=== PATIENT | female | born 1980 | race Caucasian/White ===

== ENCOUNTER 2017-02-13 15:12 | Outpatient (CLI) | payer OTHER ==
--- NOTE | 2017-02-13 16:09 | RAD ---
RIGHT KNEE RADIOGRAPHS TWO VIEWS: 02/13/2017 PROVIDED CLINICAL HISTORY: Right knee pain. FINDINGS: There is no evidence for fracture or other acute osseous abnormality. Alignment appears anatomic. J oint spaces appear preserved. No erosive changes are seen. No evidence for knee joint capsular dist ention. IMPRESSION: Normal two views of the right knee. POS: [facility]
--- NOTE | 2017-02-13 16:10 | RAD ---
LEFT KNEE RADIOGRAPHS TWO VIEWS: 02/13/2017 PROVIDED CLINICAL HISTORY: Left knee pain. FINDINGS: There is no evidence for fracture or other acute osseous abnormality. Alignment appears anatomic. J oint spaces appear preserved. Postoperative changes of prior ACL reconstruction are demonstrated. N o definite evidence for knee joint capsular distention. IMPRESSION: No evidence for an acute osseous abnormality or significant arthropathy. POS: [facility]
== END 2017-02-13 15:13 | disposition home or self-care (01) ==
LOC: RAD 15:12
PROVIDERS: ATTEND Internal Medicine Rheumatology
DX: M25.562 Pain in left knee (principal)
CPT/HCPCS: 36415; 80053; 85025; 85652; 86140; 86480

== ENCOUNTER 2017-05-23 09:04 | Outpatient (CLI) | payer OTHER ==
--- NOTE | 2017-05-23 11:28 | CT ---
CT LUMBAR SPINE: INDICATIONS: Lumbar spondylolisthesis. COMPARISON: Prior CT lumbar spine dated 05/17/2016. TECHNIQUE: Multiple axial tomograms obtained through the lumbar spine without contrast. Multiplanar reconstruct ions obtained. FINDINGS: The lumbar vertebrae maintain height. Grade 1 to 2 spondylolisthesis at L5-S1 is again seen. There is loss of disk space at L5-S1. The listhesis is unchanged from prior exam, continuing to measure ap proximately 1.5 cm. Posterior pars defects at this level are again noted. The other lumbar vertebrae maintain normal alignment. The disk spaces are otherwise maintained. There is a bilateral pars defect seen at the L2 level, which was also described previously. These ap pear unchanged. There is no associated listhesis at this level. At L1-L2, no significant disk bulge or protrusion. At L2-L3, mild diffuse disk bulge. Facet hypertrophy. Mild central canal stenosis. At L3-L4, more prominent disk bulge and mild to moderate facet hypertrophy results in moderate centra l canal stenosis. At L4-L5, there is mild disk bulge. Posterior laminectomy change. No significant central canal sten osis. At L5-S1, no significant central canal stenosis; however, there is bilateral foraminal stenosis secon tate to the spondylolisthesis. IMPRESSION: 1. The spondylolisthesis and loss of disk space at L5-S1 is unchanged from 05/17/2016. The bilatera l foraminal stenosis is noted at this level. 2. Posterior pars defects at L2 again noted without change. No listhesis at this level. 3. Mild disk bulge at several levels, as described above. POS: [facility]
== END 2017-05-23 09:05 | disposition home or self-care (01) ==
LOC: TBSIIMAG 09:04
PROVIDERS: ATTEND Neurological Surgery
DX: M43.16 Spondylolisthesis, lumbar region (principal); M99.83 Other biomechanical lesions of lumbar region
CPT/HCPCS: 72131

== ENCOUNTER 2018-03-24 12:59 | Outpatient (CLI) | payer OTHER ==
--- NOTE | 2018-03-24 15:31 | CT ---
LUMBAR SPINE CT: DATE: 03/24/2018. HISTORY: Radiculopathy, back pain with right lower extremity tingling. COMPARISON: 05/23/2017. TECHNIQUE: Axial CT imaging at 3 mm intervals through the lumbar spine with coronal and sagittal reformatted luis alberto ging. FINDINGS: Secondary to bilateral L5 pars defects, there is anterolisthesis of L5 on S1 measuring approximately 1.2 cm, similar when compared to the prior examination. Evaluation for central canal and/or neural f oraminal stenosis is limited on routine CT. There are multiple subcentimeter bilateral renal calculi present, including lower pole left kidney, n ew, as well as upper pole right kidney, new, and lower pole right kidney, stable. T12-L1: No osseous cause of significant central canal or neural foraminal stenosis. L1-2: No osseous cause of significant central canal or neural foraminal stenosis. Mild bilateral fa cet hypertrophy. L2-3: There is disk space narrowing and small disk-osteophyte complex. There is mild bilateral face t hypertrophy. There is no osseous cause of significant central canal or neural foraminal stenosis. Bilateral L2 pars defects are present with no associated anterolisthesis or retrolisthesis. Probabl e mild right-sided neural foraminal stenosis. L3-4: Mild bilateral facet hypertrophy. No osseous cause of significant central canal or neural for aminal stenosis. L4-5: Mild bilateral facet hypertrophy. Probable mild bilateral neural foraminal stenosis. No osse ous cause of significant central canal stenosis. L5-S1: Disk space narrowing, degenerative end plate change, and vacuum disk formation. Prominent bi lateral facet hypertrophy. Severe bilateral neural foraminal stenosis. No worrisome lytic or blastic bone lesion. IMPRESSION: 1. Bilateral L5 pars defects with associated anterolisthesis of L5 on S1. There is prominent degene rative change at the L5-S1 level with bilateral prominent facet hypertrophy and severe bilateral neur al foraminal stenosis. 2. Bilateral L2 pars defects with no anterolisthesis or retrolisthesis at this level. Further asses sment for underlying central canal and/or neural foraminal stenosis could be best performed via MRI o r CT myelogram as clinically warranted. POS: [facility]
== END 2018-03-24 13:00 | disposition home or self-care (01) ==
LOC: BICCT 12:59
PROVIDERS: ATTEND Neurological Surgery
DX: M54.16 Radiculopathy, lumbar region (principal); M43.17 Spondylolisthesis, lumbosacral region; M47.817 Spondylosis without myelopathy or radiculopathy, lumbosacral region; M48.061 Spinal stenosis, lumbar region without neurogenic claudication; M48.07 Spinal stenosis, lumbosacral region
CPT/HCPCS: 72131

== ENCOUNTER 2018-05-09 05:52 | Day surgery (SDC) | payer OTHER ==
[2018-05-08 10:48] VITALS: BMI 43.7
--- NOTE | 2018-05-08 15:32 | HP ---
HISTORY OF PRESENT ILLNESS: Ms. Garcia is a pleasant 37-year-old woman known to us for previous evaluations of low back pain with a known spondylolisthesis and bilateral pars defect at multiple levels, most significant at L5-S1. She has a significant grade 2 spondylolisthesis causing significant back pain, neurogenic claudication, and radicular symptoms. She has treated this in the past with conservative management and is reached to a point now where she would like to discuss perhaps surgical intervention if possible. PAST MEDICAL HISTORY: Significant for depression, chronic pain, migraine headaches, hypertension, hypothyroidism, anxiety, anemia, arthritis, and seasonal allergies. SURGICAL HISTORY: Cholecystectomy, gastric sleeve, lithotripsy, endoscopic sinus surgery, and thyroidectomy. MEDICATIONS: iron infusions, methotrexate, Celebrex, Synthroid, lisinopril, Ambien, folic acid, vitamin D, and elavil. ALLERGIES: TO PENICILLIN AND ANCEF. PHYSICAL EXAMINATION: GENERAL: The patient is alert and oriented x3. MUSCULOSKELETAL: Gait is mildly antalgic. Lower extremity motor exam is normal. ASSESSMENT: Lumbar radiculopathy, spinal stenosis, and spondylolisthesis with pars defects. PLAN: Dr. Arenas met with the patient, reviewed imaging, and advocated for L5-S1 facetectomy and bilateral fusion. He explained to the patient the risks, benefits, and alternatives of the procedure. The patient expressed understanding and elected to move forward with surgery as discussed. I do believe the patient is mentally competent capable of making medical decisions for herself and we will move forward with surgery as planned. Job ID: [id number]
[2018-05-09] MEDS ORDERED: Fentanyl 250 MCG/5 ML VIAL ONE (06:10)
[2018-05-09] MEDS ORDERED: Bupivacaine HCl 0.5%/Epinephrine 1:200,000/PF 30 ml Vial ONE (06:18)
[2018-05-09] MEDS ORDERED: Thrombin 5000 UNITS/5 ML VIAL ONE (06:18)
[2018-05-09] MEDS ORDERED: Clindamycin/D5W 900 mg/50 ml Premix Bag ONE (06:51)
[2018-05-09] MEDS ORDERED: Levofloxacin 500 mg/D5W 100 ml Premix Bag ONE (06:51)
[2018-05-09] MEDS ORDERED: PHENYLEPHRINE-NS 100 MCG/ML 10 ML SYRINGE ONE ×3 (08:39→13:00)
[2018-05-09] MEDS ORDERED: Fentanyl 100 MCG/2 ML VIAL ONE ×4 (10:46→12:19)
[2018-05-09] MEDS ORDERED: ePHEDrine 50 MG/ML VIAL ONE (13:00)
[2018-05-09] MEDS ORDERED: Rocuronium Bromide 10 MG/ML (10ML VIAL) ONE (13:00)
[2018-05-09] MEDS ORDERED: Ondansetron PF 4 MG/2 ML Vial ONE (13:00)
[2018-05-09] MEDS ORDERED: PROPOFOL 200 MG/20 ML VIAL ONE (13:00)
[2018-05-09] MEDS ORDERED: Dexamethasone 20 MG/5 ML VIAL ONE (13:00)
[2018-05-09] MEDS ORDERED: Glycopyrrolate 0.2 MG/ML 5 ML SYRINGE ONE (13:00)
[2018-05-09] MEDS ORDERED: Lidocaine 1% PF 5 ML VIAL ONE (13:00)
--- NOTE | 2018-05-09 13:51 | OP ---
DATE OF PROCEDURE: 05/09/2018 ADVISOR TO COMMAND IN COMBAT: Wilmar Vasquez PA-C INDICATION: Pain, instability, and radiculopathy. DIAGNOSIS: Grade 2 spondylolisthesis of L5 upon S1. PROCEDURE PERFORMED: L5-S1 bilateral facetectomy, posterolateral instrumented fusion, placement of allograft, and placement of autograft. DESCRIPTION OF PROCEDURE: The patient was brought into the operating room and placed under general anesthesia. She was flipped from the supine to prone position on the operating room table. A linear incision was planned spanning from L4 area to S2. After prepping and draping and after an appropriate preoperative pause, the incision was created. The soft tissues were swept away from midline. Self-retaining retractors were placed in the wound for optimal exposure. After confirming the appropriate levels with C-arm fluoroscopy of the facet joints at L5-S1 and removed bilaterally. Pars defects were identified bilaterally. Pedicles at L5 and S1 were identified and palpated bilaterally. With the aid of C-arm fluoroscopy, pedicle screws were placed in L5 and S1 bilaterally. Am intraoperative 3D CT scan was performed, which revealed an excellent placement of hardware. Rods were then placed across the screw head and final tightened. Allograft and autograft material was placed in the lateral confines of the instrumentation construct. The wound was irrigated. Hemostasis was maintained throughout. The wound was then closed in anatomic layers and a pressure dressing was applied. There were no known procedural complications. Surgical modifier 22 will be applied as there was a substantial increase in operative time secondary to increased difficulty as it relates to grade 2 spondylolisthesis, but also the patient's obesity increased the operative time by at least 50%. Job ID: [id number]
[2018-05-09] MEDS ORDERED: HYDROcodone/Acetaminophen 5/325 mg Tablet ONE (14:17)
--- NOTE | 2018-05-09 16:47 | EKG ---
Test Reason : PREOP Blood Pressure : / mmHG Vent. Rate : 076 BPM Atrial Rate : 076 BPM P-R Int : 172 ms QRS Dur : 102 ms QT Int : 414 ms P-R-T Axes : 037 062 031 degrees QTc Int : 465 ms Normal sinus rhythm Normal ECG When compared with ECG of 06-OCT-2015 11:11, No significant change was found Confirmed by DR. Jose PICKERING ([id number]) on 05/09/2018 4:47:16 PM Referred By: ARNULFO Confirmed By:DR. Jose PICKERING
== END 2018-05-09 14:34 | disposition home or self-care (01) ==
LOC: SDC 05:52
PROVIDERS: ATTEND Neurological Surgery
PROC: 0SG3071 Fusion of Lumbosacral Joint with Autologous Tissue Substitute, Posterior Approach, Posterior Column, Open Approach (ICD-10-PCS; principal; 2018-05-09)
DX: M43.17 Spondylolisthesis, lumbosacral region (principal); M48.062 Spinal stenosis, lumbar region with neurogenic claudication; M54.17 Radiculopathy, lumbosacral region; F41.9 Anxiety disorder, unspecified; F32.9 Major depressive disorder, single episode, unspecified; M45.9 Ankylosing spondylitis of unspecified sites in spine; K21.9 Gastro-esophageal reflux disease without esophagitis; E89.0 Postprocedural hypothyroidism; I10 Essential (primary) hypertension; G43.909 Migraine, unspecified, not intractable, without status migrainosus; E66.9 Obesity, unspecified; Z68.41 Body mass index [BMI] 40.0-44.9, adult; Z79.899 Other long term (current) drug therapy; Z88.0 Allergy status to penicillin; Z88.1 Allergy status to other antibiotic agents
CPT/HCPCS: 76000; 93005; 93010; C1713; J0670; J1956; J3010; J3490

== ENCOUNTER 2019-02-13 14:17 | Outpatient (CLI) | payer OTHER ==
--- NOTE | 2019-02-13 14:33 | RAD ---
EXAM: Single view of the abdomen HISTORY: Kidney stones COMPARISON: None FINDINGS: Single view of the abdomen shows a nonspecific, nonobstructive bowel gas pattern. A small c alcification measuring 3 mm in size projected over the lower pole the left kidney. Cholecystectomy clips are seen. Hardware is seen in the lumbar spine. IMPRESSION: Small left kidney stone
== END 2019-02-13 14:18 | disposition home or self-care (01) ==
LOC: BICRAD 14:17
PROVIDERS: ATTEND Urology
DX: N20.0 Calculus of kidney (principal)
CPT/HCPCS: 74018

== ENCOUNTER 2020-04-27 08:56 | Outpatient (CLI) | payer OTHER | END 2020-04-27 08:57 | disposition home or self-care (01) | LOC: BICMAMMO 08:56 | PROVIDERS: ATTEND Internal Medicine Medical Oncology | DX: Z12.31 Encounter for screening mammogram for malignant neoplasm of breast (principal); N63.20 Unspecified lump in the left breast, unspecified quadrant | CPT/HCPCS: 77063; 77067 ==

== ENCOUNTER 2020-05-02 14:27 | Outpatient (CLI) | payer OTHER | END 2020-05-02 14:28 | disposition home or self-care (01) | LOC: BICMAMMO 14:27 | PROVIDERS: ATTEND Internal Medicine Medical Oncology | DX: N63.23 Unspecified lump in the left breast, lower outer quadrant (principal) | CPT/HCPCS: G0279 ==

== ENCOUNTER 2020-08-24 08:32 | Outpatient (CLI) | payer OTHER | END 2020-08-24 08:33 | disposition home or self-care (01) | LOC: BICRAD 08:32 | PROVIDERS: ATTEND Internal Medicine Rheumatology | DX: N20.0 Calculus of kidney (principal); M17.12 Unilateral primary osteoarthritis, left knee; Z98.890 Other specified postprocedural states | CPT/HCPCS: 74018 ==

== ENCOUNTER 2020-12-22 12:45 | Outpatient (CLI) | payer OTHER | END 2020-12-22 12:46 | disposition home or self-care (01) | LOC: MRI 12:45 | PROVIDERS: ATTEND Nurse Practitioner Acute Care | DX: G43.709 Chronic migraine without aura, not intractable, without status migrainosus (principal) | CPT/HCPCS: 70553 ==

== ENCOUNTER 2021-01-31 09:23 | Inpatient (IN) | payer OTHER ==
[~2021-01-31 09:23] MED LIST: Cyanocobalamin 1000 MCG/ML VIAL IM SCH
[2021-01-31 10:10] LABS: #Basophils 0.1 thou/uL (0.0-0.2); #Lymphocytes 1.9 thou/uL (1.20-3.40); #Monocytes 1.4 thou/uL (0.11-0.59); #Neutrophils 6.2 thou/uL (1.40-6.50); %Basophils 1.1 % (0.0-1.0); %Eosinophils 0.1 % (0.0-10.0); %Monocytes 14.7 % (0.0-10.0); %Neutrophils 64.1 % (42.0-75.0); Hemoglobin 10.9 g/dL (12.0-16.0); Mean Corpuscular HGB CONC 33.2 g/dL (32.0-36.0); Mean Corpuscular Hemoglobin 32.1 pg (27.0-31.0); Mean Corpuscular Volume 96.7 fL (78.0-98.0); Mean Platelet Volume 8.3 fL (7.4-10.4); Platelet Count 257 thou/uL (130-400); RBC Distribution Width 13.6 % (11.5-14.5); Red Blood Cell (RBC) Count 3.41 mill/uL (4.20-5.40); White Blood Cell (WBC) Count 9.7 thou/uL (4.8-10.8)
[2021-01-31 10:32] LABS: ALT (SGPT) 94 U/L (8-55); AST (SGOT) 85 U/L (5-34); Albumin 3.2 g/dL (3.5-5.0); Alkaline Phosphatase 159 U/L (40-110); Anion Gap 14 mmol/L (10-20); BUN (Urea Nitrogen) 15 mg/dL (7.0-18.7); Bilirubin, Total 0.8 mg/dL (0.2-1.2); Calc. Creatinine Clearance 0 mL/min (70-130); Calcium 9.3 mg/dL (7.8-10.44); Carbon Dioxide 22 mmol/L (22-29); Chloride 100 mmol/L (98-107); Globulin 3.4 g/dL (2.4-3.5); Glucose 121 mg/dL (70-105); Potassium 4.3 mmol/L (3.5-5.1); Protein, Total 6.6 g/dL (6.0-8.3); Sodium 132 mmol/L (136-145)
[2021-01-31 10:53] LABS: Bilirubin Negative (Negative); Blood, Urine 3+ (Negative); Clarity Turbid (Clear); Glucose, Urine (Dipstick) Normal (Negative); Ketone, Urine Negative (Negative); Leukocyte 500 Leu/uL (Negative); Nitrite 2+ (Negative); Protein, Urine (Dipstick) 30 mg/dL (Neg-Trace); RBC/HPF 21-50 HPF (0-3); Specific Gravity, Urine 1.013 (1.002-1.036); Squamous Epithelial None Seen HPF (0-3); Urobilinogen Normal mg/dL (Less than 2); WBC/HPF Greater than 50 HPF (0-3)
[2021-01-31 10:55] LABS: Bacteria/HPF 2+ HPF (None Seen); Pregnancy Test - Urine (BHCG) Negative (Negative); Pregu Control Background? CLEAR/WHITE (CLR/WHITE); Pregu Control Bar Appear? YES (CONTROL BAR); Specific Gravity 1.013 (1.002-1.036)
[2021-01-31 11:55] LABS: SARS-CoV-2 NAA Rapid Test Not Detected (NotDetected)
[2021-01-31] MEDS ORDERED: Fentanyl 100 MCG/2 ML VIAL ONE ×3 (13:28→17:29)
[2021-01-31] MEDS ORDERED: Iothalamate Meglumine 60% 50 ML VIAL FS ONE (13:34)
[2021-01-31] MEDS ORDERED: Metoclopramide HCl 10 MG/2 ML VIAL ONE (13:53)
[2021-01-31] MEDS ORDERED: Promethazine HCl 25 MG/ML VIAL ONE (13:53)
[2021-01-31] MEDS ORDERED: Ondansetron PF 4 MG/2 ML Vial ONE (14:00)
[2021-01-31] MEDS ORDERED: Ketorolac Tromethamine 30 MG/ML VIAL ONE (14:00)
[2021-01-31] MEDS ORDERED: PROPOFOL 200 MG/20 ML VIAL ONE (14:00)
[2021-01-31] MEDS ORDERED: Phenylephrine 10 MG/ML VIAL ONE (14:00)
[2021-01-31] MEDS ORDERED: diphenhydrAMINE 50 MG/ML VIAL ONE (14:00)
[2021-01-31] MEDS ORDERED: Lidocaine 1% PF 5 ML VIAL ONE (14:00)
[2021-01-31] MEDS ORDERED: ePHEDrine 50 MG/ML VIAL ONE (14:00)
[2021-01-31] MEDS ORDERED: Vancomycin HCl 1.5 GM in Sodium Chloride 0.9% 250 ML 300 ML IVPB SCH (14:15)
[2021-01-31] MEDS ORDERED: Ketorolac Tromethamine 10 MG TAB PO PRN (15:07)
[2021-01-31] MEDS ORDERED: ALPRAZolam 0.5 MG TAB PO PRN (15:07)
[2021-01-31] MEDS ORDERED: Ondansetron HCl/PF 4 MG/2 ML Vial IVP PRN (15:29)
[2021-01-31] MEDS ORDERED: Promethazine HCl 25 MG/ML VIAL IM PRN (15:29)
[2021-01-31] MEDS ORDERED: Promethazine HCl 25 MG/ML VIAL IVPB PRN (15:29)
[2021-01-31 15:46] LABS: Bilirubin Negative (Negative); Blood, Urine 3+ (Negative); Clarity Turbid (Clear); Glucose, Urine (Dipstick) Normal (Negative); Ketone, Urine Negative (Negative); Leukocyte 500 Leu/uL (Negative); Nitrite 1+ (Negative); Protein, Urine (Dipstick) 70 mg/dL (Neg-Trace); Squamous Epithelial None Seen HPF (0-3); Urobilinogen Normal mg/dL (Less than 2)
[2021-01-31 15:56] LABS: Bacteria/HPF 2+ HPF (None Seen); Specific Gravity, Urine 1.054 (1.002-1.036); Transitional Epithelial 0-3 HPF (None Seen); WBC/HPF 21-50 HPF (0-3)
[2021-01-31] MEDS: D5 1/2 NS w/20 mEq KCL 1,000 ML IV SCH ×2 (17:19→18:09)
[2021-01-31 20:02] VITALS: BMI 44.9
[2021-01-31] MEDS: Folic Acid 1 MG TAB PO SCH (20:19)
[2021-01-31] MEDS: DULoxetine 60 MG CAP PO SCH (20:19)
[2021-01-31] MEDS: Zolpidem Tartrate 5 MG TAB PO SCH (20:20)
[2021-01-31] MEDS: CeleCOXIB 100 MG CAP PO SCH (20:20)
[2021-01-31] MEDS: Escitalopram Oxalate 20 mg Tablet PO SCH (20:20)
[2021-01-31] MEDS: traMADol HCl 50 MG TAB PO PRN (20:25)
[2021-01-31] MEDS: Acetaminophen 500 MG TAB PO PRN (20:26)
[2021-01-31] MEDS ORDERED: Amitriptyline HCl 25 MG TAB PO SCH (21:00)
[2021-01-31] MEDS ORDERED: Lisinopril 10 MG TAB PO SCH (21:00)
[2021-01-31] MEDS: SUMAtriptan Succinate 50 MG TAB PO PRN (21:35)
[2021-02-01] MEDS: traMADol HCl 50 MG TAB PO PRN ×2 (04:05→21:25)
[2021-02-01] MEDS: Acetaminophen 500 MG TAB PO PRN ×2 (04:05→21:24)
[2021-02-01] MEDS: D5 1/2 NS w/20 mEq KCL 1,000 ML IV SCH ×2 (04:06→16:48)
[2021-02-01] MEDS: Levothyroxine Sodium 100 MCG TAB PO SCH (05:56)
[2021-02-01 07:29] LABS: Anion Gap 10 mmol/L (10-20); BUN (Urea Nitrogen) 12 mg/dL (7.0-18.7); Calc. Creatinine Clearance 135 mL/min (70-130); Calcium 8.3 mg/dL (7.8-10.44); Carbon Dioxide 23 mmol/L (22-29); Chloride 103 mmol/L (98-107); Glucose 119 mg/dL (70-105); Potassium 4.2 mmol/L (3.5-5.1); Sodium 132 mmol/L (136-145)
[2021-02-01 07:32] LABS: Hemoglobin 9.7 g/dL (12.0-16.0); Mean Corpuscular HGB CONC 34.1 g/dL (32.0-36.0); Mean Corpuscular Hemoglobin 32.9 pg (27.0-31.0); Mean Corpuscular Volume 96.4 fL (78.0-98.0); Mean Platelet Volume 8.5 fL (7.4-10.4); Platelet Count 222 thou/uL (130-400); RBC Distribution Width 13.7 % (11.5-14.5); Red Blood Cell (RBC) Count 2.95 mill/uL (4.20-5.40)
[2021-02-01] MEDS: DULoxetine 60 MG CAP PO SCH ×2 (09:18→21:25)
[2021-02-01] MEDS: CeleCOXIB 100 MG CAP PO SCH ×2 (09:18→21:24)
[2021-02-01] MEDS: Cholecalciferol 1,000 UNITS (25 MCG) TAB PO SCH (09:18)
[2021-02-01 10:50] LABS: Band 3 % (5-11); Lymphocytes 21 % (21-51); MDiff Complete? YES; Monocytes 7 % (0-10); Neutrophil 69 % (42-75); RBC Morphology Normal
[2021-02-01] MEDS ORDERED: Amitriptyline HCl 25 MG TAB PO SCH (21:00)
[2021-02-01] MEDS: SUMAtriptan Succinate 50 MG TAB PO PRN (21:24)
[2021-02-01] MEDS: Folic Acid 1 MG TAB PO SCH (21:25)
[2021-02-01] MEDS: Zolpidem Tartrate 5 MG TAB PO SCH (21:25)
[2021-02-01] MEDS: Escitalopram Oxalate 20 mg Tablet PO SCH (21:25)
[2021-02-02] MEDS: D5 1/2 NS w/20 mEq KCL 1,000 ML IV SCH ×3 (01:50→14:38)
[2021-02-02] MEDS: Levothyroxine Sodium 100 MCG TAB PO SCH (05:42)
[2021-02-02 06:31] LABS: Hemoglobin 9.3 g/dL (12.0-16.0); Mean Corpuscular HGB CONC 34.3 g/dL (32.0-36.0); Mean Corpuscular Hemoglobin 33.5 pg (27.0-31.0); Mean Corpuscular Volume 97.6 fL (78.0-98.0); Mean Platelet Volume 8.3 fL (7.4-10.4); Platelet Count 227 thou/uL (130-400); RBC Distribution Width 13.9 % (11.5-14.5); Red Blood Cell (RBC) Count 2.77 mill/uL (4.20-5.40); White Blood Cell (WBC) Count 7.7 thou/uL (4.8-10.8)
[2021-02-02 06:53] LABS: Anion Gap 12 mmol/L (10-20); BUN (Urea Nitrogen) 10 mg/dL (7.0-18.7); Calc. Creatinine Clearance 166 mL/min (70-130); Calcium 9.1 mg/dL (7.8-10.44); Carbon Dioxide 23 mmol/L (22-29); Chloride 104 mmol/L (98-107); Glucose 106 mg/dL (70-105); Potassium 4.4 mmol/L (3.5-5.1); Sodium 135 mmol/L (136-145)
[2021-02-02 07:04] LABS: CRP (Inflammatory) 24.89 mg/dL (= or < 0.5)
[2021-02-02 08:19] LABS: Band 3 % (5-11); Eosinophils 2 % (0-10); Lymphocytes 28 % (21-51); MDiff Complete? YES; Monocytes 11 % (0-10); Neutrophil 56 % (42-75); Platelet Morphology Comment Appears Adequate; Polychromasia SLIGHT = 2-3 cells (100X) (0-2/hpf)
[2021-02-02] MEDS ORDERED: Olmesartan 5 MG TAB PO SCH (09:00)
[2021-02-02] MEDS ORDERED: Losartan 25 MG TAB PO SCH (09:00)
[2021-02-02] MEDS ORDERED: Liothyronine Sodium 5 MCG TAB PO SCH (09:00)
[2021-02-02] MEDS: DULoxetine 60 MG CAP PO SCH (09:04)
[2021-02-02] MEDS: CeleCOXIB 100 MG CAP PO SCH (09:04)
[2021-02-02] MEDS: Cholecalciferol 1,000 UNITS (25 MCG) TAB PO SCH (09:05)
[2021-02-02] MEDS ORDERED: Sulfameth/Trimethoprim DS 800-160mg TAB PO SCH ×2 (11:00→21:00)
[2021-02-02 16:10] VITALS: BP 121/83; TEMP 97.3
== END 2021-02-02 16:51 | disposition home or self-care (01) | DRG 854 ==
LOC: ERS 09:23 → SURG A 13:08 → OBSVTOIN 15:02 → SURG B 17:40
PROVIDERS: ADMIT Urology; ATTEND Hospitalist
PROC: 0T788DZ Dilation of Bilateral Ureters with Intraluminal Device, Via Natural or Artificial Opening Endoscopic (ICD-10-PCS; principal; 2021-01-31)
PROC: BT1F1ZZ Fluoroscopy of Left Kidney, Ureter and Bladder using Low Osmolar Contrast (ICD-10-PCS; 2021-01-31)
DX: A41.51 Sepsis due to Escherichia coli [E. coli] (principal); N20.1 Calculus of ureter; Z68.41 Body mass index [BMI] 40.0-44.9, adult; N13.6 Pyonephrosis; M45.9 Ankylosing spondylitis of unspecified sites in spine; G43.909 Migraine, unspecified, not intractable, without status migrainosus; I10 Essential (primary) hypertension; E89.0 Postprocedural hypothyroidism; F41.9 Anxiety disorder, unspecified; F32.A Depression, unspecified; E66.9 Obesity, unspecified; Z20.822 Contact with and (suspected) exposure to COVID-19; Z88.0 Allergy status to penicillin; Z88.8 Allergy status to other drugs, medicaments and biological substances; Z90.49 Acquired absence of other specified parts of digestive tract; Z79.899 Other long term (current) drug therapy; Z88.1 Allergy status to other antibiotic agents
CPT/HCPCS: 0240U; 36415; 74177; 74420; 80048; 80053; 81003; 81015; 81025; 83605; 85025; 86140; 87040; 87077; 87086; 87186; G0378; J1200; J1885; J1956; J2370; J2405; J2550; J2704; J2765; J3010; J3370; J3480; J3490; Q9961-U8

== ENCOUNTER 2021-02-16 08:47 | Outpatient (CLI) | payer OTHER ==
[2021-02-16 11:30] LABS: Hemoglobin 10.1 g/dL (12.0-15.5); Mean Corpuscular HGB CONC 32.4 g/dL (32.0-36.0); Mean Corpuscular Hemoglobin 30.9 pg (27.0-33.0); Mean Corpuscular Volume 95.4 fl (81.6-98.3); Mean Platelet Volume 10.5 fl (7.4-10.4); Platelet Count 541 10x3/uL (150-450); RBC Distribution Width 14.7 % (11.5-14.5); Red Blood Cell (RBC) Count 3.27 10x6/uL (3.90-5.03)
[2021-02-16 11:34] LABS: INR-International Normal Ratio 0.9
[2021-02-16 11:50] LABS: Anion Gap 11 mmol/L (10-20); BUN (Urea Nitrogen) 17 mg/dL (7.0-18.7); Calc. Creatinine Clearance 0 mL/min (70-130); Calcium 8.8 mg/dL (7.8-10.44); Carbon Dioxide 25 mmol/L (22-29); Chloride 103 mmol/L (98-107); Glucose 83 mg/dL (70-105); Sodium 134 mmol/L (136-145)
[2021-02-16 17:57] LABS: SARS-CoV-2 PCR by NAA Not Detected (NotDetected)
== END 2021-02-16 08:48 | disposition home or self-care (01) ==
LOC: LABBT 08:47
PROVIDERS: ATTEND Urology
DX: Z01.812 Encounter for preprocedural laboratory examination (principal); N20.1 Calculus of ureter; Z20.822 Contact with and (suspected) exposure to COVID-19
CPT/HCPCS: 80048; 85027; 85610; 85730; 87086; U0003; U0005

== ENCOUNTER 2021-02-21 09:57 | Day surgery (SDC) | payer BC ==
[2021-02-15 11:00] VITALS: BMI 43.6
[2021-02-21] MEDS ORDERED: Levofloxacin 500 mg/D5W 100 ml Premix Bag ONE (12:01)
[2021-02-21] MEDS ORDERED: Fentanyl 100 MCG/2 ML VIAL ONE ×3 (12:08→14:49)
[2021-02-21] MEDS ORDERED: Dexamethasone 20 MG/5 ML VIAL ONE (12:30)
[2021-02-21] MEDS ORDERED: Ketorolac Tromethamine 30 MG/ML VIAL ONE (12:30)
[2021-02-21] MEDS ORDERED: PROPOFOL 200 MG/20 ML VIAL ONE (12:30)
[2021-02-21] MEDS ORDERED: Ondansetron PF 4 MG/2 ML Vial ONE (12:30)
[2021-02-21] MEDS ORDERED: Lidocaine 1% PF 5 ML VIAL ONE (12:30)
[2021-02-21] MEDS ORDERED: Iothalamate Meglumine 60% 50 ML VIAL FS ONE ×2 (12:36→13:53)
== END 2021-02-21 16:07 | disposition home or self-care (01) ==
LOC: SDC 09:57
PROVIDERS: ATTEND Urology
PROC: 0TC68ZZ Extirpation of Matter from Right Ureter, Via Natural or Artificial Opening Endoscopic (ICD-10-PCS; principal; 2021-02-21)
PROC: 0T788DZ Dilation of Bilateral Ureters with Intraluminal Device, Via Natural or Artificial Opening Endoscopic (ICD-10-PCS; principal; 2021-02-21)
PROC: 0TC48ZZ Extirpation of Matter from Left Kidney Pelvis, Via Natural or Artificial Opening Endoscopic (ICD-10-PCS; principal; 2021-02-21)
PROC: 0TC78ZZ Extirpation of Matter from Left Ureter, Via Natural or Artificial Opening Endoscopic (ICD-10-PCS; principal; 2021-02-21)
DX: N13.2 Hydronephrosis with renal and ureteral calculous obstruction (principal); M45.9 Ankylosing spondylitis of unspecified sites in spine; E89.0 Postprocedural hypothyroidism; G43.909 Migraine, unspecified, not intractable, without status migrainosus; I10 Essential (primary) hypertension; K21.9 Gastro-esophageal reflux disease without esophagitis; M19.90 Unspecified osteoarthritis, unspecified site; Z85.850 Personal history of malignant neoplasm of thyroid; Z79.2 Long term (current) use of antibiotics; Z79.899 Other long term (current) drug therapy; Z88.0 Allergy status to penicillin; Z88.1 Allergy status to other antibiotic agents; Z98.1 Arthrodesis status; Z98.84 Bariatric surgery status
CPT/HCPCS: 74420; 82365; 88300; C2617; J1100; J1885; J1956; J2405; J2704; J3010; Q9961-U8

== ENCOUNTER 2021-04-20 13:44 | Outpatient (CLI) | payer BC | END 2021-04-20 13:45 | disposition home or self-care (01) | LOC: ULT 13:44 | PROVIDERS: ATTEND Urology | DX: N20.2 Calculus of kidney with calculus of ureter (principal) | CPT/HCPCS: 76770 ==

== ENCOUNTER 2021-05-26 21:24 | Emergency (ER) | payer BC ==
[2021-05-26] MEDS ORDERED: Lidocaine 1% PF 5 ML VIAL ONE (23:06)
[2021-05-27] MEDS ORDERED: Boostrix 0.5 ML (Tdap) VIAL ONE (00:40)
[2021-05-27] MEDS ORDERED: Bacitracin 1 PK ONE (00:46)
== END 2021-05-27 00:58 | disposition home or self-care (01) ==
LOC: ERS 21:24
DX: S61.012A Laceration without foreign body of left thumb without damage to nail, initial encounter (principal); E03.9 Hypothyroidism, unspecified; I10 Essential (primary) hypertension; D58.9 Hereditary hemolytic anemia, unspecified; W26.8XXA Contact with other sharp object(s), not elsewhere classified, initial encounter; Z23 Encounter for immunization; Z87.442 Personal history of urinary calculi
CPT/HCPCS: 12001; 90471; 90715

== ENCOUNTER 2021-08-02 14:39 | Outpatient (CLI) | payer BC | END 2021-08-02 14:40 | disposition home or self-care (01) | LOC: BICMAMMO 14:39 | PROVIDERS: ATTEND Internal Medicine Medical Oncology | DX: R92.8 Other abnormal and inconclusive findings on diagnostic imaging of breast (principal); N63.25 Unspecified lump in the left breast, overlapping quadrants | CPT/HCPCS: 77066; G0279 ==

== ENCOUNTER 2022-02-08 14:01 | Outpatient (CLI) | payer BC | END 2022-02-08 14:02 | disposition home or self-care (01) | LOC: BICMAMMO 14:01 | PROVIDERS: ATTEND Internal Medicine Medical Oncology | DX: R92.8 Other abnormal and inconclusive findings on diagnostic imaging of breast (principal) | CPT/HCPCS: G0279 ==

== ENCOUNTER 2023-11-28 12:48 | Outpatient (CLI) | payer BC | END 2023-11-28 12:49 | disposition home or self-care (01) | LOC: BICMAMMO 12:48 | PROVIDERS: ATTEND Internal Medicine | DX: Z12.31 Encounter for screening mammogram for malignant neoplasm of breast (principal); Z85.850 Personal history of malignant neoplasm of thyroid | CPT/HCPCS: 77063; 77067 ==